=== PATIENT | female | born 1990 | race Caucasian/White ===

== ENCOUNTER 2025-09-09 10:52 | Emergency (ER) | payer MEDICAID ==
[~2025-09-09] VITALS: Ht 165.1 cm; Wt 89.0 kg
[2025-09-09 11:35] LABS: MEAN PLATELET VOLUME 9.2 FL (7.4-10.4); RED CELL DISTRIBUTION WIDTH 13.8 % (11.5-14.5)
[2025-09-09 11:54] LABS: CREATININE 0.75 MG/DL (0.40-0.90); TOTAL CARBON DIOXIDE 27.8 MMOL/L (24-32); eCRCL 96 ML/MIN; eGFR 89 ML/MIN
[2025-09-09 12:41] LABS: URINE HCG NEGATIVE (NEG)
[2025-09-09 12:47] LABS: LEUKOCYTE ESTERASE ,URINE NEGATIVE (Neg); NITRITES, URINE NEGATIVE (Neg); OCCULT BLOOD,URINE LARGE (Neg)
[2025-09-09 12:49] LABS: UA COLLECTION TYPE CLN CATCH MIDSTREAM
[2025-09-09 12:57] LABS: SQUAMOUS EPITHELIAL CELL,UR MANY /LPF (FEW)
[2025-09-09 13:03] VITALS: TEMP 97.5
[2025-09-09 14:15] VITALS: PULSE 81; RESP 14; O2SAT 98
--- NOTE | 2025-09-09 15:05 | Physician Documentation ---
History of Present Illness Chief Complaint: Abdominal Pain Stated Complaint: ABD PAIN Time Seen by MD: 13:43 Mode of Arrival: EMS HPI 35-year-old female history of GERD presenting for abdominal pain and vomiting. She reports that 3 weeks ago she was at [facility] for the same symptoms. She had vomited several times and then had bright red vomit on a few occasions. She was told she had a stomach ulcer and told to start taking omeprazole and ondansetron. She had mostly improved until today when she had reoccurrence of her nausea vomiting and bright red blood. When I see the patient she states that she is feeling much better as she had received ondansetron via EMS. She no longer feels nauseous and states that she only came in because her boyfriend was worried about her. She denies any hematochezia or melena Medication Reconciliation Allergies: Coded Allergies: Sulfa (Sulfonamide Antibiotics) (Verified Allergy, Unknown, CARDIAC PROBLEM, 09/09/25) PT STATES CARDIAC ARREST OCCURRED Past Medical History Smoking Status: Current every day smoker Review of Systems All Other Systems at this time: Reviewed and Negative Constitutional: Denies: chills, fever Respiratory: Denies: shortness of breath Cardiovascular: Denies: chest pain Gastrointestinal: Reports: nausea Physical Exam Vital Signs: Temperature: 97.5, Source: Oral, Heart Rate: 81, Respiratory Rate: 14, BP: 111/86, Pulse Oximetry: 98, Weight: 89.000 Oxygen Flow Rate: 0 Progress Results/Orders Results/Orders Completed Orders - JELANI PARSON MD Hcg, Ur Ql (09/09/25 10:55) Cbc/Diff (09/09/25 10:55) BMP (09/09/25 10:55) Lipase (09/09/25 10:55) CMP (09/09/25 10:55) Ua W/Microscopic, Cult If Ind (09/09/25 12:15) Vital Signs 09/09/25 09/09/25 09/09/25 09/09/25 10:55 11:16 11:17 13:03 Temp 97.5 97.5 Pulse 75 84 69 Resp 16 14 14 16 B/P (MAP) 117/77 115/79 (91) 117/80 (92) Pulse Ox 100 100 99 O2 Flow Rate 0 0 09/09/25 14:15 Pulse 81 Resp 14 B/P (MAP) 111/86 (94) Pulse Ox 98 Laboratory Tests Test 09/09/25 11:20 09/09/25 12:15 White Blood Count 8.5 Red Blood Count 4.94 Hemoglobin 14.2 Hematocrit 42.7 Mean Corpuscular Volume 86.3 Mean Corpuscular Hemoglobin 28.7 Mean Corpuscular Hemoglobin Concent 33.3 Red Cell Distribution Width 13.8 Platelet Count 227 Mean Platelet Volume 9.2 Neutrophils (%) (Auto) 74.6 Lymphocytes (%) (Auto) 14.7 L Monocytes (%) (Auto) 8.6 Eosinophils (%) (Auto) 1.4 Basophils (%) (Auto) 0.7 Neutrophils # (Auto) 6.3 Lymphocytes # (Auto) 1.2 Monocytes # (Auto) 0.7 Eosinophils # (Auto) 0.1 Basophils # (Auto) 0.1 CBC Comment Sodium Level 139 Potassium Level 3.5 Chloride Level 103 Carbon Dioxide Level 27.8 Anion Gap 8 Blood Urea Nitrogen 22 H Creatinine 0.75 Estimated GFR/1.73 m2 89 BUN/Creatinine Ratio 29.3 H Glucose Level 105 H Calcium Level 8.5 Total Bilirubin 0.9 Aspartate Amino Transf (AST/SGOT) 9 L Alanine Aminotransferase (ALT/SGPT) 18 Alkaline Phosphatase 53 Total Protein 7.3 Albumin 3.9 Globulin 3.4 Albumin/Globulin Ratio 1.1 Lipase 25 Chemistry Comments Urine Specimen Description Cln catch midstream Urine Color Yellow Urine Clarity Clear Urine pH 5.5 Urine Specific [place] >=1.030 Urine Protein Trace Urine Glucose (UA) Negative Urine Ketones >=80 Urine Occult Blood Large H Urine Nitrite Negative Urine Bilirubin Moderate Urine Urobilinogen 0.2 Urine Leukocyte Esterase Negative Urine RBC 50-100 Urine WBC 10-20 H Urine Squamous Epithelial Cells Many Urine Bacteria Few Urine Culture Indicated Rejected for culture Volume Urine Centrifuged 10 ml Urine HCG, Qualitative Negative Urine Comment Medical Decision Making Additional information obtaine: N/A Findings 35-year-old presenting for reported bright red bloody emesis following several bouts of vomiting. She is well-appearing with normal vitals. Labs with no leukocytosis and normal hemoglobin. She has been on exam. Her symptoms resolved following ondansetron. She is already on PPI which we will have her continue Differential Dx:Considerations: Appendicitis, Bowel obstruction, Gastroenteritis Departure Disposition: HOME / SELF CARE / HOMELESS Impression: Primary Impression: Hematemesis Qualified Codes: K92.0 - Hematemesis Additional Instructions: Please call your primary care physician to discuss a referral for endoscopy. Refrain from taking any prednisone anti-inflammatories such as naproxen Aleve ibuprofen Motrin aspirin and avoid drinking alcohol. Continue taking your omeprazole. You may add Tums and try the medication I prescribed Referrals: NO PRIMARY CARE PROVIDER (PCP) Prescriptions Sucralfate (Carafate) 1 Gram Tablet 1 TAB PO Q6H for 30 Days, #120 TAB 0 Refills Prov: JELANI PARSON MD 09/09/25 Signature Scribe Signature: na Attestation: JELANI Grijalva MD Sep 09, 2025 15:05
[2025-09-09] MEDS ORDERED: SUCR1TAB34 PO (15:15)
[2025-09-09 15:17] VITALS: BP 126/94
== END 2025-09-09 15:20 | disposition home or self-care (01) ==
LOC: ER 10:53
DX: K92.0 Hematemesis (principal); F17.200 Nicotine dependence, unspecified, uncomplicated; Z88.2 Allergy status to sulfonamides
CPT/HCPCS: 36415; 80053; 81001; 81025; 83690; 85025; 99285